=== PATIENT | female | born 1995 | race Caucasian/White ===

== ENCOUNTER 2024-02-06 17:01 | Outpatient (BNV) | payer MEDICARE, MEDICAID, SELFPAY | END 2024-02-14 17:58 | PROVIDERS: Admitting Provider Psychiatry & Neurology Psychiatry; Visit Provider Internal Medicine Cardiovascular Disease | DX: R94.31 Abnormal electrocardiogram [ECG] [EKG] (principal) | CPT/HCPCS: 93010 ==

== ENCOUNTER 2024-02-06 17:01 | Inpatient (IN) | payer MEDICARE, MEDICAID, SELFPAY ==
[2024-02-06 17:48] VITALS: BMI 15.1
[2024-02-06 18:22] VITALS: BP 105/69; PULSE 69; RESP 16; TEMP 36.9; O2SAT 100
--- NOTE | 2024-02-06 18:29 | PC.ADMIT ---
Lucila was admitted to at 1720 from [facility] on a CV for treatment of MDD with self harm via cutting her neck with a razor blade and tweezers. She has an extensive history of self-injurious behavior including cutting her wrist which resulted in permanent nerve damage and 2 surgeries. She has been diagnosed with multiple eating disorders. She was at [facility] for 9 days awaiting a bed, during which time her injuries have largely healed. While there staff attempted to stop her from purging and she began headbanging resulting in a physical and medication restraint. She states that she was hospitalized about a year ago at another hospital and was restrained during that hospitalization as well, also for headbanging. She has no history of aggression towards others and denies HI. Lucila is pleasant and cooperative throughout the admission process. Her thought process is linear and her speech is WNL, quiet, and polite. She asks appropriate questions about the rules of the unit and appears to accept the answers. Lucila currently resides in a custodial in [place] where the staff have been worried about her decompensation. She reports occasional marijuana use as well as daily cigarette smoking. She states that she drank socially in the past but no longer consumes any alcohol. Per custodial staff she has been caught buying cough syrup with unclear intent of getting high vs. self harm. Skin check notable for scabbed superficial wounds to neck and old scars on arms. She refused the flu vaccine. Smoking cessation consult ordered.? Patient is placed on 15 minute checks for safety.
[2024-02-06 20:00] VITALS: BP 127/90; PULSE 72; TEMP 36.4; O2SAT 100
[2024-02-06] MEDS: traZODone HCL 50 MG TABLET PO (22:01)
[2024-02-06] MEDS: Famotidine 20 MG TABLET PO (22:01)
[2024-02-06] MEDS: Docusate Sodium 100 MG CAPSULE PO (22:01)
[2024-02-07] MEDS: traZODone HCL 50 MG TABLET PO ×2 (02:26→21:37)
[2024-02-07 07:49] VITALS: BP 96/64; PULSE 84; RESP 18; TEMP 37; O2SAT 100
[2024-02-07 08:43] LABS: Estimated Average Glucose 94 mg/dL; Hemoglobin A1C 123.6911 umol/L; Hemoglobin A1c % 4.9 % (<6.0); Total Hemoglobin (HGBA1C) 4050.2523 umol/L
[2024-02-07 08:47] LABS: Alanine Aminotransferase 24 U/L (0-31); Albumin Level 4.8 g/dL (3.5-5.0); Alkaline Phosphatase 53 U/L (39-117); Anion Gap 17 (12-20); Aspartate Amino Transferase 69 U/L (5-31); Bilirubin Total 0.6 mg/dL (0.0-1.0); Blood Urea Nitrogen 8 mg/dL (9-16); Calcium 10.4 mg/dL (8.4-10.2); Carbon Dioxide 29 mmol/L (22-29); Chloride 97 mmol/L (96-108); Cholesterol 175 mg/dL (<200); Estimated Glomerular Filt Rate > 60; Glucose Fasting 94 mg/dL (60-99); HDL Cholesterol 44 mg/dL (>40); LDL Cholesterol Calculated 105 mg/dL (<100); Potassium 3.6 mmol/L (3.3-5.1); Sodium 139 mmol/L (135-145); Total Protein 7.8 g/dL (6.5-8.0); Triglycerides 132 mg/dL (<150)
[2024-02-07 09:04] LABS: Thyroid Stimulating Hormone 1.56 uIU/mL (0.32-4.0)
[2024-02-07 09:16] LABS: Folate 15.1 ng/mL (> or = 4.0); Vitamin B12 1203 pg/mL (200-900)
[2024-02-07] MEDS: Famotidine 20 MG TABLET PO ×2 (09:30→21:37)
[2024-02-07] MEDS: Escitalopram Oxalate 20 MG TABLET PO (09:30)
[2024-02-07] MEDS: Docusate Sodium 100 MG CAPSULE PO ×2 (09:31→21:37)
[2024-02-07] MEDS: QUEtiapine Fumarate 50 MG TABLET 150 MG PO (09:31)
[2024-02-07] MEDS: Cholecalciferol (Vitamin D3) 25 MCG TABLET PO (09:31)
[2024-02-07] MEDS: clonazePAM 1 MG TABLET PO (10:36)
--- NOTE | 2024-02-07 11:24 | HO.PSYADMNOT ---
HPI Date of Service: 02/07/24 Chief Complaint: Severe episode of recurrent major depression d/o Sources of Information: patient interviewed, chart reviewed and crisis/core team assessment reviewed HPI Subjective Notes: Conditional Voluntary Narrative: 28 yo female, resident of a longterm with past history of depression, anxiety, trauma and anorexia nervosa who is transferred from [facility] after a 9 day stay in the ED awaiting a bed. Patient initially presented to [facility] with a self inflicted neck injury. She used tweezers and razor blade to cut on her neck. She had a CT that showed subcutaneous emphysema and pneumomediastinum so was transferred as a category trauma to [facility]. She was seen by ENT and scoped and had a encephalogram and both were reassuring and there was no esophageal trauma. She was in the ED. She was restrained on at least one occasion. She was engaged in purging behavior. She was seen by psychiatry for a consltation while in the ED and inpatient hospitalization was recommended. She was finally transferred to [facility] for continued treatment. Patient reports she has been residing at her longterm since May 2023 after a 2 month stay at [facility] eating disorder program. She reports one trigger is her father's [id number]. Otherwise says her depression has been building up and is vague about other precipitants. I just let things bottle up and I cut to escape the pain . She denies current SI. Reports she is regretful about the attempt. Past Psychiatric History: Depression and eating disorder since teenage years. 2 suicide attempts. OD in 2017 and cut wrist causing tendon and median nerve damage 2021. [place] [facility] treatment center. Medical Evaluation Reviewed: Yes [facility] Medical History (Updated 02/07/24 @ 23:11 by Alec Pierce MD) MDD (major depressive disorder) Anorexia nervosa Family History: unknown Social History: Resides in longterm. Single. No children. HS education. Unemployed. Grew up in [place], [place]. Substance History: MJ Trauma History: Reports history of trauma. Details not elicited. Diagnostics Vital Signs (24Hr): Vital Signs - 24 hr 02/06/24 18:22 02/06/24 20:00 02/07/24 07:49 Temperature 98.5 F 97.5 F 98.6 F Pulse Rate 69 72 84 Respiratory Rate 16 18 Blood Pressure 105/69 127/90 H 96/64 Pulse Oximetry 100 100 100 Oxygen Delivery Method Room Air Room Air Room Air BMI result Body Mass Index 15.1 Labs 02/07/24 07:46 Labs: Laboratory Results - last 48 hr 02/07/24 07:46 Sodium 139 Potassium 3.6 Chloride 97 Carbon Dioxide 29 Anion Gap 17 BUN 8 L Creatinine 0.76 Estim Creat Clear Calc 62.0 Estimated GFR > 60 Fasting Glucose 94 Estimat Average Glucose 94 Hemoglobin A1c % 4.9 Calcium 10.4 H Total Bilirubin 0.6 AST 69 H ALT 24 Alkaline Phosphatase 53 Total Protein 7.8 Albumin 4.8 Triglycerides 132 Cholesterol 175 LDL Cholesterol, Calc 105 H HDL Cholesterol 44 Vitamin B12 1203 H Folate 15.1 TSH 1.56 Meds/Allergies Meds Home Medications ?Medication ?Instructions ?Recorded ?Confirmed ?Type cholecalciferol (vitamin D3) 25 25 mcg PO DAILY 02/06/24 02/06/24 History mcg (1,000 unit) capsule docusate sodium 100 mg capsule 100 mg PO BID 02/06/24 02/06/24 History escitalopram oxalate 20 mg tablet 20 mg PO DAILY 02/06/24 02/06/24 History famotidine 20 mg tablet 20 mg PO BID 02/06/24 02/06/24 History melatonin 5 mg tablet 10 mg PO BEDTIME 02/06/24 02/07/24 History ondansetron HCl 4 mg tablet 4 mg PO QID PRN Nausea 02/06/24 02/06/24 History quetiapine 150 mg tablet 150 mg PO BEDTIME 02/06/24 02/07/24 History trazodone 100 mg tablet 200 mg PO BEDTIME PRN Insomnia 02/06/24 02/06/24 History clonazepam 0.5 mg tablet See Rx Instructions .Route 02/07/24 02/07/24 History .COMPLEX PRN Anxiety Allergies Allergies Allergy/AdvReac Type Severity Reaction Status Date / Time pollen extracts Allergy Unknown Unknown Verified 02/06/24 17:54 hydroxyzine Allergy Fainting Verified 02/06/24 17:53 Mental Status Exam Mental Status Exam Narrative: General appearance: Thin. casually appropriately dressed. fair hygiene.?Superficial healing cuts on neck. Eye contact: WNL. Musculoskeletal: Normal muscle strength/tone, Normal gait and station, No abnormal involuntary movements like tremors, EPS or dyskinesia. No psychomotor agitation or retardation. Normal posture.??? Manner/behavior: cooperative and guarded Speech:? Fluent, with normal rate, tone and volume. Language: No receptive or expressive language impairment? Mood: depressed Affect: constricted range, congruent to mood and without lability? Thought process/associations: Linear with no flight of ideas or loose associations.?? Thought content:?No delusions or paranoia.?Helpless. Hallucinations: No auditory, visual or other hallucinations Suicidality/self-destructive behavior: Denies current.? ? Homicidally/violence: none.? Reliability: fair.? ? Judgment: poor.? ? Insight: poor Cognition: Alert and oriented to time, place and person. Attention, concentration and fund of knowledge are normal.? Impulse control and emotional regulation: partial. Intelligence estimate: average.? Assessment & Plan Assessment & Plan (1) Depression, major, severe recurrence: Status: Acute Code(s): F33.2 - Major depressive disorder, recurrent severe without psychotic features (2) Anorexia nervosa, binge eating/purging type: Status: Acute Code(s): F50.029 - Anorexia nervosa, binge eating/purging type, unspecified Plan 28 yo female resident of a longterm admitted from [facility] for self inflicted neck injury and exacerbation of depression and eating disorder behavior. She reports history of trauma and anniversary of her father's . Plan: - Admit to inpatient psychiatry - CV - Collateral information from family and providers. - Milieu treatment and group therapy. - Medications: Contnue. Added Melatonin which patient takes at home and NRT. - Social work evaluation. - Disposition planning. - Tank Terminal Gauger evaluation. - Recheck labs Friday. - Monitor ED behavior. Patient educated on: medication risk/benefits, therapeutic strategies and medical condition Reason for continued inpatient stay Substantial Risk for: harm to self, inability to function and rapid decompensation Statement Statement: I have reviewed the history and physical and performed a pertinent examination on my patient. No changes have occurred unless specified. If the History and Physical was not performed prior to admission, the Hospitalist's service will be consulted for completing the admission physical. Time Spent With Patient Time: Total time managing care of this patient today ____ minutes.
[2024-02-07] MEDS: Nicotine 14 MG PATCH.TD24 TRANSDERMA (12:33)
--- NOTE | 2024-02-07 13:43 | HO.PM.IMCN ---
History of Present Illness Data of Consult Service Date: 02/07/24 Primary Care Provider: Unknown Physician HPI Reason for consult: Admission H&P Pt is a 28-year-old female with a PMH significant for?anorexia nervosa, iron deficiency anemia, generalized anxiety disorder, and MDD who is admitted to [facility] psychiatry unit for worsening depression and SI with self inflicted wounds to the neck. Patient initially presented to [facility] in mid December as a level 2 trauma activation. Patient apparently had used tweezers and a razor blade to cut and poke herself in the anterior neck. Received a CT of soft tissue of neck that showed subcutaneous emphysema to mediastinum. Patient was seen and evaluated by ENT where a flexible fiberoptic laryngoscopy was performed and was essentially normal, though it did show a small tracheal defect that they felt was small and should heal without any intervention. Medical consult for admission H&P. ?Patient seen and evaluated in her room where she reports overall feels well without any acute medical complaints at this time. Occasionally has nausea without vomiting. Is not experiencing any dysphagia, odynophagia, difficulty swallowing, or difficulty handling secretions. No shortness a breath or difficulty breathing. Denies chest pain, pressure, or palpitations. No fever or chills. Of note, pt reports had recent abnormal echocardiogram sometime at the beginning of December where a valve abnormality was identified. Patient unsure of exact findings, but no she should follow-up with her PCP. Vitals reviewed, stable. Labs reviewed, no gross significant abnormalities. Potassium WNL at 3.6. TSH WNL at 1.56. Review of Systems Review of Systems: Patient has no acute medical complaints at this time [facility] Medical History (Updated 02/07/24 @ 14:50 by LEÓN Fisher) MDD (major depressive disorder) Anorexia nervosa Social History Household Members: Caregiver Housing: House Do you presently have visiting nurse or other home services: Yes Patient Tobacco Use Status: Current everyday Tobacco user Tobacco use type: Cigarette Cigarette Packs Per Day: 0.5 Cigarettes Per Day: 10.0 Years Smoked: 8 Smoked in Last 30 Days: Yes e-Cigarette/Vaping Use: Former Use Patient Interested in Nicotine Replacement: Yes Patient Given Instructions on How to Stop Smoking: Yes Date Education Initiated: 02/06/24 Second Hand Smoke Exposure: Yes Use of substances other than those prescribed or required for medical reasons: Yes Substance Use Type: Marijuana Substance Use Frequency: Weekly Last Used Substance: Unknown Currently Displaying Signs/Symptoms of Drug Intoxication Withdrawal: No Any prior treatment program specific to substance use: No Have you been hit, kicked, punched, or otherwise hurt by someone within the past year? If so, by whom?: No Do you feel safe in your current relationship?: No Current Relationship Is there a partner from a previous relationship who is making you feel unsafe now?: No Are you made to feel afraid or neglected: No Advance Directives: No Advance Directives Information Provided: Yes Do you have thoughts of harming others: None Do you have a plan to hurt others: No Plan Recently lost weight without trying: No How much weight loss: Not applicable Eating poorly because of decreased appetite: No Nutrition screen score: 0 Patient : No : No Poor oral hygiene: No Meds Allergies Allergy/AdvReac Type Severity Reaction Status Date / Time pollen extracts Allergy Unknown Unknown Verified 02/06/24 17:54 hydroxyzine Allergy Fainting Verified 02/06/24 17:53 Active Medications: Current Medications Acetaminophen (Acetaminophen 325 Mg Tablet) 650 mg PO Q6H PRN PRN Reason: Headache/Pain Mild Scale (1-3) Al Hydroxide/Mg Hydroxide (Magnesium Hydrox/Alum Hydrox 30 Ml Oral.Susp) 30 ml PO Q6H PRN PRN Reason: Heartburn/Nausea Clonazepam (Clonazepam 0.5 Mg Tablet) 0.5 mg PO BID PRN PRN Reason: Anxiety Clonazepam (Clonazepam 1 Mg Tablet) 1 mg PO DAILY [facility] Last Admin: 02/07/24 10:36 Dose: 1 mg Diphenhydramine HCl (Diphenhydramine Hcl 25 Mg Capsule) 50 mg PO BEDTIME PRN PRN Reason: Insomnia Docusate Sodium (Docusate Sodium 100 Mg Capsule) 100 mg PO BID [facility] Last Admin: 02/07/24 09:31 Dose: 100 mg Escitalopram Oxalate (Escitalopram Oxalate 20 Mg Tablet) 20 mg PO DAILY [facility] Last Admin: 02/07/24 09:30 Dose: 20 mg Famotidine (Famotidine 20 Mg Tablet) 20 mg PO BID [facility] Last Admin: 02/07/24 09:30 Dose: 20 mg Magnesium Hydroxide (Milk Of Magnesia 30 Ml Oral.Susp) 30 ml PO DAILY PRN PRN Reason: Constipation Melatonin (Melatonin 3 Mg Tablet) 10 mg PO BEDTIME [facility] Nicotine (Nicotine 14 Mg Patch.Td24) 14 mg TRANSDERMA DAILY [facility] Last Admin: 02/07/24 12:33 Dose: 14 mg Nicotine Polacrilex (Nicotine Polacrilex 2 Mg Gum) 4 mg BUCCAL Q2H PRN PRN Reason: Nicotine Cravings Nicotine Polacrilex (Nicotine Polacrilex 2 Mg Gum) 2 mg BUCCAL Q2H PRN PRN Reason: Nicotine Cravings Ondansetron HCl (Ondansetron Odt 4 Mg Tab.Rapdis) 4 mg TRANSLINGU QID PRN PRN Reason: Nausea Quetiapine Fumarate (Quetiapine Fumarate 50 Mg Tablet) 150 mg PO BEDTIME [facility] Trazodone HCl (Trazodone Hcl 50 Mg Tablet) 50 mg PO BEDTIME MRX1 PRN PRN Reason: Insomnia Last Admin: 02/07/24 02:26 Dose: 50 mg Vitamin D (Cholecalciferol (Vitamin D3) 25 Mcg Tablet) 25 mcg PO DAILY [facility] Last Admin: 02/07/24 09:31 Dose: 25 mcg Home Medications ?Medication ?Instructions ?Recorded ?Confirmed ?Last Taken ?Type cholecalciferol (vitamin D3) 25 25 mcg PO DAILY 02/06/24 02/06/24 Unknown History mcg (1,000 unit) capsule docusate sodium 100 mg capsule 100 mg PO BID 02/06/24 02/06/24 Unknown History escitalopram oxalate 20 mg tablet 20 mg PO DAILY 02/06/24 02/06/24 Unknown History famotidine 20 mg tablet 20 mg PO BID 02/06/24 02/06/24 Unknown History melatonin 5 mg tablet 10 mg PO BEDTIME 02/06/24 02/07/24 Unknown History ondansetron HCl 4 mg tablet 4 mg PO QID PRN Nausea 02/06/24 02/06/24 Unknown History quetiapine 150 mg tablet 150 mg PO BEDTIME 02/06/24 02/07/24 Unknown History trazodone 100 mg tablet 200 mg PO BEDTIME PRN Insomnia 02/06/24 02/06/24 Unknown History clonazepam 0.5 mg tablet See Rx Instructions .Route 02/07/24 02/07/24 Unknown History .COMPLEX PRN Anxiety Physical Exam Vital Signs and Narrative: Vital Signs: Last Vital Signs Temp 98.6 F 02/07/24 07:49 Pulse 84 02/07/24 07:49 Resp 18 02/07/24 07:49 BP 96/64 02/07/24 07:49 Pulse Ox 100 02/07/24 07:49 O2 Del Method Room Air 02/07/24 07:49 BMI result Body Mass Index 15.1 General: AOx3, very thin, in no acute distress Resp: CTA bilaterally CVS: S1, S2, RRR GI: +BS, NT, no distention Skin: Warm, dry. Well-healing scar tissue on anterior neck. No signs of infection. Neuro: Cranial nerves II-XII grossly intact bilaterally. Motor grossly intact bilaterally Extremities: No edema Results Labs 02/07/24 07:46 Labs: Laboratory Results - last 24 hr 02/07/24 07:46 Anion Gap 17 Estim Creat Clear Calc 62.0 Estimated GFR > 60 Fasting Glucose 94 Estimat Average Glucose 94 Hemoglobin A1c % 4.9 Calcium 10.4 H Total Bilirubin 0.6 AST 69 H ALT 24 Alkaline Phosphatase 53 Total Protein 7.8 Albumin 4.8 Triglycerides 132 Cholesterol 175 LDL Cholesterol, Calc 105 H HDL Cholesterol 44 Vitamin B12 1203 H Folate 15.1 TSH 1.56 Assessment and Plan (1) Medical clearance for psychiatric admission: Status: Acute Plan Pt is a 28-year-old female with a PMH significant for?anorexia nervosa, iron deficiency anemia, generalized anxiety disorder, and MDD who is admitted to [facility] psychiatry unit for worsening depression and SI with self inflicted wounds to the neck. Patient initially presented to [facility] in mid December as a level 2 trauma activation. Patient apparently had used tweezers and a razor blade to cut and poke herself in the anterior neck. Received a CT of soft tissue of neck that showed subcutaneous emphysema to mediastinum. Patient was seen and evaluated by ENT where a flexible fiberoptic laryngoscopy was performed and was essentially normal, though it did show a small tracheal defect that they felt was small and should heal without any intervention. Medical consult for admission H&P. ? Mood disorder Plan as per Psychiatry Anorexia nervosa BMI 15.1, labs without electrolyte abnormalities Plan as per Psychiatry Self-inflicted neck wounds Well-healed, no additional workup or treatment indicated at this time Abnormal echocardiogram Reports received echocardiogram at the beginning of December with unknown valve abnormality Follow up outpatient with PCP Thank you for allowing us to participate in the care of this patient. Signing off at this time. Please re-consult if any acute complaints or issues arise.
[2024-02-07] MEDS: clonazePAM 0.5 MG TABLET PO (16:58)
[2024-02-07 20:00] VITALS: RESP 16
[2024-02-07] MEDS: Melatonin 3 MG TABLET 10 MG PO (21:40)
[2024-02-08] MEDS: clonazePAM 1 MG TABLET PO (10:29)
[2024-02-08] MEDS: Famotidine 20 MG TABLET PO ×2 (10:29→21:03)
[2024-02-08] MEDS: Docusate Sodium 100 MG CAPSULE PO ×2 (10:30→21:03)
[2024-02-08] MEDS: Cholecalciferol (Vitamin D3) 25 MCG TABLET PO (10:30)
[2024-02-08] MEDS: Escitalopram Oxalate 20 MG TABLET PO (10:30)
[2024-02-08] MEDS: clonazePAM 0.5 MG TABLET PO ×2 (10:30→21:09)
[2024-02-08] MEDS: Nicotine 14 MG PATCH.TD24 TRANSDERMA (10:31)
--- NOTE | 2024-02-08 11:06 | HO.PSYCHPN ---
Subjective Subjective Date of Service: 02/08/24 Reason For Visit: Severe episode of recurrent major depression d/o Interim History: Patient seen and discussed. Mostly cooperative however continues with purging behaviors. Eating her meals. Denies SI today and feels safe on the unit. Social with some peers. No SIB. No SI today. Had a distressing dream about father. Reports she was on Trazodone 200 mg HS and requesting same. VSS Review of Systems Review of Systems Patient has no acute medical complaints at this time Mental Status Exam Mental Status Exam Narrative: General appearance: Thin. casually appropriately dressed. fair hygiene.?Superficial healing cuts on neck. Eye contact: WNL. Musculoskeletal: Normal muscle strength/tone, Normal gait and station, No abnormal involuntary movements like tremors, EPS or dyskinesia. No psychomotor agitation or retardation. Normal posture.??? Manner/behavior: cooperative and guarded Speech:? Fluent, with normal rate, tone and volume. Language: No receptive or expressive language impairment? Mood: depressed Affect: constricted range, congruent to mood and without lability? Thought process/associations: Linear with no flight of ideas or loose associations.?? Thought content:?No delusions or paranoia.?Helpless. Hallucinations: No auditory, visual or other hallucinations Suicidality/self-destructive behavior: Denies current.? ? Homicidally/violence: none.? Reliability: fair.? ? Judgment: poor.? ? Insight: poor Cognition: Alert and oriented to time, place and person. Attention, concentration and fund of knowledge are normal.? Impulse control and emotional regulation: partial. Intelligence estimate: average.? Diagnostics Vital Signs (24Hr): Vital Signs - 24 hr 02/07/24 20:00 Respiratory Rate 16 BMI result Body Mass Index 15.1 Labs 02/07/24 07:46 Labs: Laboratory Results - last 48 hr 02/07/24 07:46 Sodium 139 Potassium 3.6 Chloride 97 Carbon Dioxide 29 Anion Gap 17 BUN 8 L Creatinine 0.76 Estim Creat Clear Calc 62.0 Estimated GFR > 60 Fasting Glucose 94 Estimat Average Glucose 94 Hemoglobin A1c % 4.9 Calcium 10.4 H Total Bilirubin 0.6 AST 69 H ALT 24 Alkaline Phosphatase 53 Total Protein 7.8 Albumin 4.8 Triglycerides 132 Cholesterol 175 LDL Cholesterol, Calc 105 H HDL Cholesterol 44 Vitamin B12 1203 H Folate 15.1 TSH 1.56 Medications Medications Current Medications Acetaminophen (Acetaminophen 325 Mg Tablet) 650 mg PO Q6H PRN PRN Reason: Headache/Pain Mild Scale (1-3) Al Hydroxide/Mg Hydroxide (Magnesium Hydrox/Alum Hydrox 30 Ml Oral.Susp) 30 ml PO Q6H PRN PRN Reason: Heartburn/Nausea Clonazepam (Clonazepam 0.5 Mg Tablet) 0.5 mg PO BID PRN PRN Reason: Anxiety Last Admin: 02/08/24 10:30 Dose: 0.5 mg Clonazepam (Clonazepam 1 Mg Tablet) 1 mg PO DAILY [facility] Last Admin: 02/08/24 10:29 Dose: 1 mg Diphenhydramine HCl (Diphenhydramine Hcl 25 Mg Capsule) 50 mg PO BEDTIME PRN PRN Reason: Insomnia Docusate Sodium (Docusate Sodium 100 Mg Capsule) 100 mg PO BID [facility] Last Admin: 02/08/24 10:30 Dose: 100 mg Escitalopram Oxalate (Escitalopram Oxalate 20 Mg Tablet) 20 mg PO DAILY [facility] Last Admin: 02/08/24 10:30 Dose: 20 mg Famotidine (Famotidine 20 Mg Tablet) 20 mg PO BID [facility] Last Admin: 02/08/24 10:29 Dose: 20 mg Magnesium Hydroxide (Milk Of Magnesia 30 Ml Oral.Susp) 30 ml PO DAILY PRN PRN Reason: Constipation Melatonin (Melatonin 3 Mg Tablet) 10 mg PO BEDTIME [facility] Last Admin: 02/07/24 21:40 Dose: 10 mg Nicotine (Nicotine 14 Mg Patch.Td24) 14 mg TRANSDERMA DAILY [facility] Last Admin: 02/08/24 10:31 Dose: 14 mg Nicotine Polacrilex (Nicotine Polacrilex 2 Mg Gum) 4 mg BUCCAL Q2H PRN PRN Reason: Nicotine Cravings Nicotine Polacrilex (Nicotine Polacrilex 2 Mg Gum) 2 mg BUCCAL Q2H PRN PRN Reason: Nicotine Cravings Ondansetron HCl (Ondansetron Odt 4 Mg Tab.Rapdis) 4 mg TRANSLINGU QID PRN PRN Reason: Nausea Quetiapine Fumarate (Quetiapine Fumarate 50 Mg Tablet) 150 mg PO BEDTIME [facility] Trazodone HCl (Trazodone Hcl 50 Mg Tablet) 50 mg PO BEDTIME MRX1 PRN PRN Reason: Insomnia Last Admin: 02/07/24 21:37 Dose: 50 mg Vitamin D (Cholecalciferol (Vitamin D3) 25 Mcg Tablet) 25 mcg PO DAILY [facility] Last Admin: 02/08/24 10:30 Dose: 25 mcg Allergies Allergies Allergy/AdvReac Type Severity Reaction Status Date / Time pollen extracts Allergy Unknown Unknown Verified 02/06/24 17:54 hydroxyzine Allergy Fainting Verified 02/06/24 17:53 Assessment & Plan Assessment & Plan (1) Depression, major, severe recurrence: Status: Acute Code(s): F33.2 - Major depressive disorder, recurrent severe without psychotic features (2) Anorexia nervosa, binge eating/purging type: Status: Acute Code(s): F50.029 - Anorexia nervosa, binge eating/purging type, unspecified Plan 28 yo female resident of a fdc admitted from [facility] for self inflicted neck injury and exacerbation of depression and eating disorder behavior. She reports history of trauma and anniversary of her father's . Plan: - Admit to inpatient psychiatry - CV - Collateral information from family and providers. - Milieu treatment and group therapy. - Medications: Contnue. Added Melatonin which patient takes at home and NRT. - Social work evaluation. - Disposition planning. - Negative Notcher evaluation. - Recheck labs Friday. - Monitor ED behavior. 02/07: Increase Trazodone to 200 mg HS. Metabolic panel in AM 02/08. Reason for continued inpatient stay Substantial Risk for: harm to self, inability to function, rapid decompensation and med/psych decompensation Time Spent With Patient Time: Total time managing care of this patient today ____ minutes.
[2024-02-08] MEDS: Acetaminophen 325 MG TABLET 650 MG PO (16:51)
[2024-02-08] MEDS: Ondansetron ODT 4 MG TAB.RAPDIS TRANSLINGU (16:52)
[2024-02-08 20:00] VITALS: BP 111/80; PULSE 87; RESP 18; TEMP 37.2; O2SAT 99
[2024-02-08] MEDS: Melatonin 3 MG TABLET 10 MG PO (21:01)
[2024-02-08] MEDS: traZODone HCL 100 MG TABLET 200 MG PO (21:02)
[2024-02-08] MEDS: QUEtiapine Fumarate 50 MG TABLET 150 MG PO (21:03)
[2024-02-09 08:00] VITALS: BP 98/60; PULSE 84; TEMP 36.6; O2SAT 98
[2024-02-09] MEDS: Nicotine 14 MG PATCH.TD24 TRANSDERMA (08:43)
[2024-02-09] MEDS: Famotidine 20 MG TABLET PO ×2 (08:44→22:07)
[2024-02-09] MEDS: Cholecalciferol (Vitamin D3) 25 MCG TABLET PO (08:44)
[2024-02-09] MEDS: clonazePAM 1 MG TABLET PO (08:44)
[2024-02-09] MEDS: Escitalopram Oxalate 20 MG TABLET PO (08:44)
[2024-02-09] MEDS: Docusate Sodium 100 MG CAPSULE PO ×2 (08:44→22:07)
[2024-02-09] MEDS: Acetaminophen 325 MG TABLET 650 MG PO (10:52)
[2024-02-09] MEDS: Ondansetron ODT 4 MG TAB.RAPDIS TRANSLINGU (10:52)
[2024-02-09 15:43] VITALS: BP 110/80; PULSE 87; TEMP 36.8; O2SAT 100
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
[2024-02-09 20:00] VITALS: BP 135/80; PULSE 96; TEMP 36.8; O2SAT 99
[2024-02-09] MEDS: clonazePAM 0.5 MG TABLET PO (22:05)
[2024-02-09] MEDS: QUEtiapine Fumarate 50 MG TABLET 150 MG PO (22:06)
[2024-02-09] MEDS: traZODone HCL 100 MG TABLET 200 MG PO (22:06)
[2024-02-09] MEDS: Melatonin 3 MG TABLET 10 MG PO (22:09)
[2024-02-10 08:00] VITALS: BP 105/63; PULSE 103; RESP 17; TEMP 37.3; O2SAT 97
[2024-02-10] MEDS: Nicotine 14 MG PATCH.TD24 TRANSDERMA (09:18)
[2024-02-10] MEDS: clonazePAM 1 MG TABLET PO (09:19)
[2024-02-10] MEDS: Cholecalciferol (Vitamin D3) 25 MCG TABLET PO (09:19)
[2024-02-10] MEDS: Escitalopram Oxalate 20 MG TABLET PO (09:19)
[2024-02-10] MEDS: Famotidine 20 MG TABLET PO ×2 (09:19→22:10)
[2024-02-10] MEDS: Docusate Sodium 100 MG CAPSULE PO ×2 (09:19→22:06)
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
[2024-02-10 20:00] VITALS: BP 108/73; PULSE 82; TEMP 37.1; O2SAT 100
[2024-02-10] MEDS: traZODone HCL 100 MG TABLET 200 MG PO (22:06)
[2024-02-10] MEDS: clonazePAM 0.5 MG TABLET PO (22:06)
[2024-02-10] MEDS: QUEtiapine Fumarate 50 MG TABLET 150 MG PO (22:06)
[2024-02-10] MEDS: Melatonin 3 MG TABLET 10 MG PO (22:40)
[2024-02-11 08:00] VITALS: BP 102/69; PULSE 92; TEMP 36.2; O2SAT 99
[2024-02-11] MEDS: clonazePAM 1 MG TABLET PO (09:10)
[2024-02-11] MEDS: Escitalopram Oxalate 20 MG TABLET PO (09:10)
[2024-02-11] MEDS: Famotidine 20 MG TABLET PO ×2 (09:10→21:19)
[2024-02-11] MEDS: Cholecalciferol (Vitamin D3) 25 MCG TABLET PO (09:10)
[2024-02-11] MEDS: Docusate Sodium 100 MG CAPSULE PO ×2 (09:10→21:19)
[2024-02-11] MEDS: Nicotine 14 MG PATCH.TD24 TRANSDERMA (09:10)
[2024-02-11] MEDS: Ondansetron ODT 4 MG TAB.RAPDIS TRANSLINGU (13:47)
[2024-02-11] MEDS: Acetaminophen 325 MG TABLET 650 MG PO (13:49)
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
[2024-02-11 20:00] VITALS: BP 122/75; PULSE 87; TEMP 36.8; O2SAT 100
[2024-02-11 21:19] VITALS: BP 122/75
[2024-02-11] MEDS: Prazosin HCL 1 MG CAPSULE PO (21:19)
[2024-02-11] MEDS: QUEtiapine Fumarate 50 MG TABLET 150 MG PO (21:19)
[2024-02-11] MEDS: traZODone HCL 100 MG TABLET 200 MG PO (21:19)
[2024-02-11] MEDS: Melatonin 3 MG TABLET 9 MG PO (21:20)
[2024-02-12] MEDS: traZODone HCL 100 MG TABLET 200 MG PO ×2 (00:36→21:12)
[2024-02-12 08:00] VITALS: BP 107/62; PULSE 76; RESP 16; TEMP 37; O2SAT 98
[2024-02-12] MEDS: Cholecalciferol (Vitamin D3) 25 MCG TABLET PO (11:15)
[2024-02-12] MEDS: Nicotine 14 MG PATCH.TD24 TRANSDERMA (11:15)
[2024-02-12] MEDS: Escitalopram Oxalate 20 MG TABLET PO (11:15)
[2024-02-12] MEDS: clonazePAM 1 MG TABLET PO (11:15)
[2024-02-12] MEDS: Docusate Sodium 100 MG CAPSULE PO ×2 (11:15→21:11)
[2024-02-12] MEDS: Famotidine 20 MG TABLET PO ×2 (11:15→21:12)
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
[2024-02-12 20:00] VITALS: BP 109/74; PULSE 96; O2SAT 95
[2024-02-12 21:11] VITALS: BP 109/74
[2024-02-12] MEDS: Melatonin 3 MG TABLET 9 MG PO (21:11)
[2024-02-12] MEDS: Prazosin HCL 1 MG CAPSULE PO (21:11)
[2024-02-12] MEDS: QUEtiapine Fumarate 50 MG TABLET 150 MG PO (21:12)
[2024-02-12] MEDS: Acetaminophen 325 MG TABLET 650 MG PO (21:21)
[2024-02-12] MEDS: clonazePAM 0.5 MG TABLET PO (21:22)
[2024-02-13 08:00] VITALS: BP 105/59; PULSE 77; RESP 16; TEMP 36.9; O2SAT 96
--- NOTE | 2024-02-13 09:49 | P.PNPSI_ITS ---
Subjective Subjective Date of Service: 02/13/24 Reason For Visit: Severe episode of recurrent major depression d/o Subjective Notes: Conditional Voluntary Healthcare Proxy: No Guardianship: No Medical Problems Affecting Mental Status: No Interim History: I am feeling triggered today. Requests Melatonin increase to 12 mg. Not wanting to process current feelings or sx. Making needs known, however staying in her room mostly, room-mate is supportive of pt. Declines further discussion. Medication Compliance: Yes Side effects from medications: No Attending Groups: No Review of Systems Acute medical concerns: No Medical Review of Systems: unchanged Review of Systems Review of Systems Denies Mental Status Exam Mental Status Exam Patient Appearance: Appropriate Patient Orientation: Person, Place, Time and Situation Level of Consciousness: Alert Patient Behavior: Passive, Avoidant and Good Eye Contact Mood Description: Depressed, Anxious and Apprehensive Affect Description: Anxious, Flat and Apprehensive Patient Cognition Impaired: No Ability to Follow Directions: Good Speech Pattern: Spontaneous Speech Memory Description: Episodic Impaired Hallucinations: None Delusions: Paranoid Ideation Perceptual Disturbances: Depersonalization and Derealization Thought Process: Rumination Thought Content: positive for Perseveration and positive for Suicidal Ideation (denies) Depressive Symptoms: Hopelessness, Unhappiness, Low Self Esteem, Loss of Energy and Difficulty Concentrating Judgement: Fair Diagnostics Vital Signs (24Hr): Vital Signs - 24 hr 02/12/24 20:00 02/12/24 21:11 Pulse Rate 96 Blood Pressure 109/74 109/74 Pulse Oximetry 95 Oxygen Delivery Method Room Air BMI result Body Mass Index 15.1 Labs 02/07/24 07:46 Medications Medications Current Medications Acetaminophen (Acetaminophen 325 Mg Tablet) 650 mg PO Q6H PRN PRN Reason: Headache/Pain Mild Scale (1-3) Last Admin: 02/12/24 21:21 Dose: 650 mg Al Hydroxide/Mg Hydroxide (Magnesium Hydrox/Alum Hydrox 30 Ml Oral.Susp) 30 ml PO Q6H PRN PRN Reason: Heartburn/Nausea Clonazepam (Clonazepam 0.5 Mg Tablet) 0.5 mg PO BID PRN PRN Reason: Anxiety Last Admin: 02/12/24 21:22 Dose: 0.5 mg Clonazepam (Clonazepam 1 Mg Tablet) 1 mg PO DAILY [facility] Last Admin: 02/12/24 11:15 Dose: 1 mg Diphenhydramine HCl (Diphenhydramine Hcl 25 Mg Capsule) 50 mg PO BEDTIME PRN PRN Reason: Insomnia Docusate Sodium (Docusate Sodium 100 Mg Capsule) 100 mg PO BID [facility] Last Admin: 02/12/24 21:11 Dose: 100 mg Escitalopram Oxalate (Escitalopram Oxalate 20 Mg Tablet) 20 mg PO DAILY [facility] Last Admin: 02/12/24 11:15 Dose: 20 mg Famotidine (Famotidine 20 Mg Tablet) 20 mg PO BID [facility] Last Admin: 02/12/24 21:12 Dose: 20 mg Magnesium Hydroxide (Milk Of Magnesia 30 Ml Oral.Susp) 30 ml PO DAILY PRN PRN Reason: Constipation Melatonin (Melatonin 3 Mg Tablet) 9 mg PO BEDTIME [facility] Last Admin: 02/12/24 21:11 Dose: 9 mg Nicotine (Nicotine 14 Mg Patch.Td24) 14 mg TRANSDERMA DAILY [facility] Last Admin: 02/12/24 11:15 Dose: 14 mg Nicotine Polacrilex (Nicotine Polacrilex 2 Mg Gum) 4 mg BUCCAL Q2H PRN PRN Reason: Nicotine Cravings Nicotine Polacrilex (Nicotine Polacrilex 2 Mg Gum) 2 mg BUCCAL Q2H PRN PRN Reason: Nicotine Cravings Ondansetron HCl (Ondansetron Odt 4 Mg Tab.Rapdis) 4 mg TRANSLINGU QID PRN PRN Reason: Nausea Last Admin: 02/11/24 13:47 Dose: 4 mg Prazosin HCl (Prazosin Hcl 1 Mg Capsule) 1 mg PO BEDTIME [facility]; Protocol Last Admin: 02/12/24 21:11 Dose: 1 mg Quetiapine Fumarate (Quetiapine Fumarate 50 Mg Tablet) 150 mg PO BEDTIME [facility] Last Admin: 02/12/24 21:12 Dose: 150 mg Trazodone HCl (Trazodone Hcl 100 Mg Tablet) 200 mg PO BEDTIME MRX1 [facility] Last Admin: 02/12/24 22:30 Dose: Not Given Vitamin D (Cholecalciferol (Vitamin D3) 25 Mcg Tablet) 25 mcg PO DAILY [facility] Last Admin: 02/12/24 11:15 Dose: 25 mcg Allergies Allergies Allergy/AdvReac Type Severity Reaction Status Date / Time pollen extracts Allergy Unknown Unknown Verified 02/06/24 17:54 hydroxyzine Allergy Fainting Verified 02/06/24 17:53 Assessment & Plan Assessment & Plan (1) Depression, major, severe recurrence: Status: Acute Code(s): F33.2 - Major depressive disorder, recurrent severe without psychotic features (2) Anorexia nervosa, binge eating/purging type: Status: Acute Code(s): F50.029 - Anorexia nervosa, binge eating/purging type, unspecified Plan 28 yo female resident of a half-way admitted from [facility] for self inflicted neck injury and exacerbation of depression and eating disorder behavior. She reports history of trauma and anniversary of her father's . Plan: - Admit to inpatient psychiatry - CV - Collateral information from family and providers. - Milieu treatment and group therapy. - Medications: Contnue. Added Melatonin which patient takes at home and NRT. - Social work evaluation. - Disposition planning. - Is Support Analyst evaluation. - Recheck labs Friday. - Monitor ED behavior. 02/07: Increase Trazodone to 200 mg HS. Metabolic panel in AM 02/08. 02/08: Continue tx. Collateral contact with program Encourage milieu participation. 02/10: Prazosin 1 mg HS for mgt of nightmares. 02/12: Increase Melatonin to 12 mg HS Reason for continued inpatient stay Substantial Risk for: rapid decompensation and med/psych decompensation Time Spent With Patient Time: Total time managing care of this patient today ____ minutes.
[2024-02-13] MEDS: Nicotine 14 MG PATCH.TD24 TRANSDERMA (10:07)
[2024-02-13] MEDS: clonazePAM 1 MG TABLET PO (10:08)
[2024-02-13] MEDS: Escitalopram Oxalate 20 MG TABLET PO (10:09)
[2024-02-13] MEDS: Cholecalciferol (Vitamin D3) 25 MCG TABLET PO (10:09)
[2024-02-13] MEDS: Famotidine 20 MG TABLET PO ×2 (10:09→21:29)
[2024-02-13] MEDS: Docusate Sodium 100 MG CAPSULE PO ×2 (10:09→21:29)
[2024-02-13] MEDS: clonazePAM 0.5 MG TABLET PO (16:11)
[2024-02-13 20:00] VITALS: BP 123/72; PULSE 74; RESP 16; TEMP 36.2; O2SAT 100
[2024-02-13 21:28] VITALS: BP 107/78
[2024-02-13] MEDS: Prazosin HCL 1 MG CAPSULE PO (21:28)
[2024-02-13] MEDS: QUEtiapine Fumarate 50 MG TABLET 150 MG PO (21:29)
[2024-02-13] MEDS: traZODone HCL 100 MG TABLET 200 MG PO (21:29)
[2024-02-13] MEDS: Melatonin 3 MG TABLET 12 MG PO (21:30)
[2024-02-13] MEDS: Acetaminophen 325 MG TABLET 650 MG PO (21:35)
[2024-02-14 08:00] VITALS: BP 101/58; PULSE 78; RESP 14; TEMP 36.9; O2SAT 97
[2024-02-14] MEDS: Escitalopram Oxalate 20 MG TABLET PO (08:57)
[2024-02-14] MEDS: Docusate Sodium 100 MG CAPSULE PO ×2 (08:58→23:02)
[2024-02-14] MEDS: Cholecalciferol (Vitamin D3) 25 MCG TABLET PO (08:58)
[2024-02-14] MEDS: Nicotine 14 MG PATCH.TD24 TRANSDERMA (08:58)
[2024-02-14] MEDS: Famotidine 20 MG TABLET PO ×2 (08:58→23:07)
[2024-02-14] MEDS: clonazePAM 1 MG TABLET PO (08:58)
--- NOTE | 2024-02-14 09:11 | HO.PSYCHPN ---
Subjective Subjective Date of Service: 02/14/24 Reason For Visit: Severe episode of recurrent major depression d/o Subjective Notes: Conditional Voluntary Healthcare Proxy: No Guardianship: No Medical Problems Affecting Mental Status: No Interim History: Patient was seen and discussed in rounds today. Records and plans were reviewed. She has been visible. Continues to have some paranoia. Endorses depression and anxiety. Eating and sleeping adequately. No complaints or side effects. No recent med changes. No SI. Review of Systems Review of Systems Yes all other systems are reviewed and are negative Mental Status Exam Mental Status Exam Narrative: In today's visit she is alert, oriented and pleasant. Normal speech. Moderate eye contact. Appropriate affect. No acute signs of psychosis. Cognitively is grossly intact. No SI. Judgment is intact. Some paranoid ideations reported. Diagnostics Vital Signs (24Hr): Vital Signs - 24 hr 02/13/24 20:00 02/13/24 21:28 02/14/24 08:00 Temperature 97.2 F 98.4 F Pulse Rate 74 78 Respiratory Rate 16 14 Blood Pressure 123/72 107/78 101/58 L Pulse Oximetry 100 97 Oxygen Delivery Method Room Air Room Air BMI result Body Mass Index 15.1 Labs 02/07/24 07:46 Medications Medications Current Medications Acetaminophen (Acetaminophen 325 Mg Tablet) 650 mg PO Q6H PRN PRN Reason: Headache/Pain Mild Scale (1-3) Last Admin: 02/13/24 21:35 Dose: 650 mg Al Hydroxide/Mg Hydroxide (Magnesium Hydrox/Alum Hydrox 30 Ml Oral.Susp) 30 ml PO Q6H PRN PRN Reason: Heartburn/Nausea Clonazepam (Clonazepam 0.5 Mg Tablet) 0.5 mg PO BID PRN PRN Reason: Anxiety Last Admin: 02/13/24 16:11 Dose: 0.5 mg Clonazepam (Clonazepam 1 Mg Tablet) 1 mg PO DAILY [facility] Last Admin: 02/14/24 08:58 Dose: 1 mg Diphenhydramine HCl (Diphenhydramine Hcl 25 Mg Capsule) 50 mg PO BEDTIME PRN PRN Reason: Insomnia Docusate Sodium (Docusate Sodium 100 Mg Capsule) 100 mg PO BID [facility] Last Admin: 02/14/24 08:58 Dose: 100 mg Escitalopram Oxalate (Escitalopram Oxalate 20 Mg Tablet) 20 mg PO DAILY [facility] Last Admin: 02/14/24 08:57 Dose: 20 mg Famotidine (Famotidine 20 Mg Tablet) 20 mg PO BID [facility] Last Admin: 02/14/24 08:58 Dose: 20 mg Magnesium Hydroxide (Milk Of Magnesia 30 Ml Oral.Susp) 30 ml PO DAILY PRN PRN Reason: Constipation Melatonin (Melatonin 3 Mg Tablet) 12 mg PO BEDTIME [facility] Last Admin: 02/13/24 21:30 Dose: 12 mg Nicotine (Nicotine 14 Mg Patch.Td24) 14 mg TRANSDERMA DAILY [facility] Last Admin: 02/14/24 08:58 Dose: 14 mg Nicotine Polacrilex (Nicotine Polacrilex 2 Mg Gum) 4 mg BUCCAL Q2H PRN PRN Reason: Nicotine Cravings Nicotine Polacrilex (Nicotine Polacrilex 2 Mg Gum) 2 mg BUCCAL Q2H PRN PRN Reason: Nicotine Cravings Ondansetron HCl (Ondansetron Odt 4 Mg Tab.Rapdis) 4 mg TRANSLINGU QID PRN PRN Reason: Nausea Last Admin: 02/11/24 13:47 Dose: 4 mg Prazosin HCl (Prazosin Hcl 1 Mg Capsule) 1 mg PO BEDTIME [facility]; Protocol Last Admin: 02/13/24 21:28 Dose: 1 mg Quetiapine Fumarate (Quetiapine Fumarate 50 Mg Tablet) 150 mg PO BEDTIME [facility] Last Admin: 02/13/24 21:29 Dose: 150 mg Trazodone HCl (Trazodone Hcl 100 Mg Tablet) 200 mg PO BEDTIME MRX1 [facility] Last Admin: 02/14/24 06:01 Dose: Not Given Vitamin D (Cholecalciferol (Vitamin D3) 25 Mcg Tablet) 25 mcg PO DAILY [facility] Last Admin: 02/14/24 08:58 Dose: 25 mcg Allergies Allergies Allergy/AdvReac Type Severity Reaction Status Date / Time pollen extracts Allergy Unknown Unknown Verified 02/06/24 17:54 hydroxyzine Allergy Fainting Verified 02/06/24 17:53 Assessment & Plan Assessment & Plan (1) Depression, major, severe recurrence: Status: Acute Code(s): F33.2 - Major depressive disorder, recurrent severe without psychotic features (2) Anorexia nervosa, binge eating/purging type: Status: Acute Code(s): F50.029 - Anorexia nervosa, binge eating/purging type, unspecified Plan 28 yo female resident of a fci admitted from [facility] for self inflicted neck injury and exacerbation of depression and eating disorder behavior. She reports history of trauma and anniversary of her father's . Plan: - Admit to inpatient psychiatry - CV - Collateral information from family and providers. - Milieu treatment and group therapy. - Medications: Contnue. Added Melatonin which patient takes at home and NRT. - Social work evaluation. - Disposition planning. - Claims Supervisor evaluation. - Recheck labs Friday. - Monitor ED behavior. 02/07: Increase Trazodone to 200 mg HS. Metabolic panel in AM 02/08. 02/08: Continue tx. Collateral contact with program Encourage milieu participation. 02/10: Prazosin 1 mg HS for mgt of nightmares. 02/12: Increase Melatonin to 12 mg HS 02/13: Continue current regimen and plans for further stabilization. Reason for continued inpatient stay Substantial Risk for: med/psych decompensation Time Spent With Patient Time: Total time managing care of this patient today ____ minutes.
[2024-02-14] MEDS: Acetaminophen 325 MG TABLET 650 MG PO (13:33)
[2024-02-14] MEDS: Ibuprofen 400 MG TABLET PO (17:46)
[2024-02-14 17:53] LABS: Anion Gap 16 (12-20); Carbon Dioxide 30 mmol/L (22-29); Chloride 94 mmol/L (96-108); Potassium 2.7 mmol/L (3.3-5.1); Sodium 137 mmol/L (135-145)
--- NOTE | 2024-02-14 17:58 | ECG_ITS ---
Test Reason : hypokalemia Blood Pressure : / mmHG Vent. Rate : 091 BPM Atrial Rate : 091 BPM P-R Int : 158 ms QRS Dur : 082 ms QT Int : 372 ms P-R-T Axes : 027 033 208 degrees QTc Int : 457 ms Normal sinus rhythm ST & T wave abnormality, consider inferolateral ischemia Abnormal ECG No previous ECGs available Referred By: Jose Pederson Electronically Signed By:Asif Roque
[2024-02-14] MEDS: Potassium Chloride Packet 20 MEQ PACKET 60 MEQ PO (18:39)
--- NOTE | 2024-02-14 19:03 | PC.NURSE ---
Pt asked for large amounts of snacks throughout day, and overheard purging in bathroom several times today. Covering provider made aware and pt received blood work to check electrolytes. Critical Potassium 2.7 received. Hospitalist and covering provider made aware. ECG obtained and forwarded to hospitalist. Pt received Potassium 60meg oral replacement per orders. Hospitalist made aware that pt reported feeling abdominal cramping today, as well as a newly reported itchy , tingling sensation throughout her arms and legs. Pt stated both symptoms began two days ago. Pt stated this week she also felt fatigue and difficulty standing for long periods of time. Pt stated she experienced these symptoms in the past with low Potassium, and stated to her knowledge her lowest Potassium level was 2.1.
[2024-02-14 20:00] VITALS: BP 108/56; PULSE 84; RESP 16; TEMP 37.1; O2SAT 99
[2024-02-14] MEDS: Potassium Chloride ER 20 MEQ TAB.ER.PRT 40 MEQ PO (20:27)
[2024-02-14] MEDS: QUEtiapine Fumarate 50 MG TABLET 150 MG PO (22:59)
[2024-02-14 23:03] VITALS: BP 99/70
[2024-02-14] MEDS: Prazosin HCL 1 MG CAPSULE PO (23:03)
[2024-02-14] MEDS: Melatonin 3 MG TABLET 12 MG PO (23:04)
[2024-02-14] MEDS: traZODone HCL 100 MG TABLET 200 MG PO (23:07)
--- NOTE | 2024-02-15 00:15 | PM.EVENT ---
Event Note Date of Service: 02/15/24 Event Note: Patient is a 28-year-old female with a PMH significant for anorexia nervosa who admitted to [facility] who was actively purging herself on the unit. Labs were drawn and came back showing hypokalemia of 2.7. Will treat patient with potassium 60 mEq and an additional 40 mEq extended release tablet. Will recheck labs tonight and then again in the morning, and supplement as necessary. Time Spent With Patient Time: Total time managing care of this patient today ____ minutes.
[2024-02-15 00:21] LABS: Anion Gap 13 (12-20); Blood Urea Nitrogen 5 mg/dL (9-16); Calcium 9.3 mg/dL (8.4-10.2); Carbon Dioxide 30 mmol/L (22-29); Chloride 99 mmol/L (96-108); Creatinine Clr Calc Pharmacy 67.2; Estimated Glomerular Filt Rate > 60; Glucose Random 95 mg/dL (60-115); Potassium 2.9 mmol/L (3.3-5.1); Sodium 139 mmol/L (135-145)
--- NOTE | 2024-02-15 00:24 | PC.NURSE ---
Lab called with critical potassium level 2.9. [place] text was also forwarded to Akshat Garcia. Repeat dose of K+ ordered.
[2024-02-15] MEDS: Potassium Chloride Packet 20 MEQ PACKET 40 MEQ PO ×2 (00:42→18:32)
--- NOTE | 2024-02-15 00:46 | PC.NURSE ---
Potassium, 40 meq po given at 0042. Patient encouraged to try and relax to allow medication to be absorbed.
--- NOTE | 2024-02-15 07:00 | PC.NURSE ---
Dr. Ro aware of patient's labs and K+ medications given during the night.
[2024-02-15 07:53] VITALS: BP 96/52; PULSE 77; RESP 14; TEMP 36.8; O2SAT 97
[2024-02-15 09:01] LABS: Anion Gap 11 (12-20); Blood Urea Nitrogen 7 mg/dL (9-16); Carbon Dioxide 29 mmol/L (22-29); Chloride 105 mmol/L (96-108); Creatinine Clr Calc Pharmacy 74.7; Estimated Glomerular Filt Rate > 60; Glucose Random 109 mg/dL (60-115); Sodium 141 mmol/L (135-145)
[2024-02-15] MEDS: clonazePAM 1 MG TABLET PO (09:26)
[2024-02-15] MEDS: Cholecalciferol (Vitamin D3) 25 MCG TABLET PO (09:26)
[2024-02-15] MEDS: Nicotine 14 MG PATCH.TD24 TRANSDERMA (09:26)
[2024-02-15] MEDS: Docusate Sodium 100 MG CAPSULE PO ×2 (09:27→21:39)
[2024-02-15] MEDS: Escitalopram Oxalate 20 MG TABLET PO (09:27)
[2024-02-15] MEDS: Famotidine 20 MG TABLET PO ×2 (09:27→21:39)
--- NOTE | 2024-02-15 09:31 | P.PNPSI_ITS ---
Subjective Subjective Date of Service: 02/15/24 Reason For Visit: Severe episode of recurrent major depression d/o Subjective Notes: Conditional Voluntary Healthcare Proxy: No Guardianship: No Medical Problems Affecting Mental Status: No Interim History: Patient was seen and discussed in rounds today. Records and plans were reviewed. She continues to binge and purge and last evening her potassium was 2.7. Hospitalist was consulted and was given potassium and this morning her level is at 4.0. We are going to reach out to the hospitalist again. No potassium was given this morning until we hear back. I did have a discussion with her about this and she has gone through this many times. No SI. Sleeping adequately. Review of Systems Review of Systems Bingeing and purging Yes all other systems are reviewed and are negative Mental Status Exam Mental Status Exam Narrative: In today's visit she is alert, oriented and pleasant. Normal speech. Moderate eye contact. Appropriate affect. No acute signs of psychosis. Cognitively is grossly intact. No SI. Judgment is intact. Able to move all limbs. No abnormalities of gait. Some paranoid ideations reported. Diagnostics Vital Signs (24Hr): Vital Signs - 24 hr 02/14/24 20:00 02/14/24 23:03 02/15/24 07:53 Temperature 98.7 F 98.3 F Pulse Rate 84 77 Respiratory Rate 16 14 Blood Pressure 108/56 L 99/70 96/52 L Pulse Oximetry 99 97 Oxygen Delivery Method Room Air Room Air BMI result Body Mass Index 15.1 Labs 02/15/24 08:07 Labs: Laboratory Results - last 48 hr 02/14/24 02/14/24 02/14/24 17:22 23:47 23:53 Sodium 137 139 Potassium 2.7 L* D 2.9 L* Chloride 94 L 99 Carbon Dioxide 30 H 30 H Anion Gap 16 13 BUN 5 L Creatinine 0.70 Estim Creat Clear Calc 67.2 Estimated GFR > 60 Random Glucose 95 Calcium 9.3 D Hold Yellow Top See Note 02/15/24 08:07 Sodium 141 Potassium 4.0 D Chloride 105 Carbon Dioxide 29 Anion Gap 11 L BUN 7 L Creatinine 0.63 Estim Creat Clear Calc 74.7 Estimated GFR > 60 Random Glucose 109 Calcium 9.0 Hold Yellow Top Medications Medications Current Medications Acetaminophen (Acetaminophen 325 Mg Tablet) 650 mg PO Q6H PRN PRN Reason: Headache/Pain Mild Scale (1-3) Last Admin: 02/14/24 13:33 Dose: 650 mg Al Hydroxide/Mg Hydroxide (Magnesium Hydrox/Alum Hydrox 30 Ml Oral.Susp) 30 ml PO Q6H PRN PRN Reason: Heartburn/Nausea Clonazepam (Clonazepam 0.5 Mg Tablet) 0.5 mg PO BID PRN PRN Reason: Anxiety Last Admin: 02/13/24 16:11 Dose: 0.5 mg Clonazepam (Clonazepam 1 Mg Tablet) 1 mg PO DAILY [facility] Last Admin: 02/15/24 09:26 Dose: 1 mg Diphenhydramine HCl (Diphenhydramine Hcl 25 Mg Capsule) 50 mg PO BEDTIME PRN PRN Reason: Insomnia Docusate Sodium (Docusate Sodium 100 Mg Capsule) 100 mg PO BID [facility] Last Admin: 02/15/24 09:27 Dose: 100 mg Escitalopram Oxalate (Escitalopram Oxalate 20 Mg Tablet) 20 mg PO DAILY [facility] Last Admin: 02/15/24 09:27 Dose: 20 mg Famotidine (Famotidine 20 Mg Tablet) 20 mg PO BID [facility] Last Admin: 02/15/24 09:27 Dose: 20 mg Ibuprofen (Ibuprofen 400 Mg Tablet) 400 mg PO Q6H PRN PRN Reason: Pain, Moderate(Pain Scale 4-6) Last Admin: 02/14/24 17:46 Dose: 400 mg Magnesium Hydroxide (Milk Of Magnesia 30 Ml Oral.Susp) 30 ml PO DAILY PRN PRN Reason: Constipation Melatonin (Melatonin 3 Mg Tablet) 12 mg PO BEDTIME [facility] Last Admin: 02/14/24 23:04 Dose: 12 mg Nicotine (Nicotine 14 Mg Patch.Td24) 14 mg TRANSDERMA DAILY [facility] Last Admin: 02/15/24 09:26 Dose: 14 mg Nicotine Polacrilex (Nicotine Polacrilex 2 Mg Gum) 4 mg BUCCAL Q2H PRN PRN Reason: Nicotine Cravings Nicotine Polacrilex (Nicotine Polacrilex 2 Mg Gum) 2 mg BUCCAL Q2H PRN PRN Reason: Nicotine Cravings Ondansetron HCl (Ondansetron Odt 4 Mg Tab.Rapdis) 4 mg TRANSLINGU QID PRN PRN Reason: Nausea Last Admin: 02/11/24 13:47 Dose: 4 mg Potassium Chloride (Potassium Chloride Packet 20 Meq Packet) 40 meq PO DAILY [facility] Last Admin: 02/15/24 09:29 Dose: Not Given Prazosin HCl (Prazosin Hcl 1 Mg Capsule) 1 mg PO BEDTIME [facility]; Protocol Last Admin: 02/14/24 23:03 Dose: 1 mg Quetiapine Fumarate (Quetiapine Fumarate 50 Mg Tablet) 150 mg PO BEDTIME [facility] Last Admin: 02/14/24 22:59 Dose: 150 mg Trazodone HCl (Trazodone Hcl 100 Mg Tablet) 200 mg PO BEDTIME MRX1 [facility] Last Admin: 02/15/24 06:49 Dose: Not Given Vitamin D (Cholecalciferol (Vitamin D3) 25 Mcg Tablet) 25 mcg PO DAILY [facility] Last Admin: 02/15/24 09:26 Dose: 25 mcg Allergies Allergies Allergy/AdvReac Type Severity Reaction Status Date / Time pollen extracts Allergy Unknown Unknown Verified 02/06/24 17:54 hydroxyzine Allergy Fainting Verified 02/06/24 17:53 Assessment & Plan Assessment & Plan (1) Depression, major, severe recurrence: Status: Acute Code(s): F33.2 - Major depressive disorder, recurrent severe without psychotic features (2) Anorexia nervosa, binge eating/purging type: Status: Acute Code(s): F50.029 - Anorexia nervosa, binge eating/purging type, unspecified Plan 28 yo female resident of a halfway admitted from [facility] for self inflicted neck injury and exacerbation of depression and eating disorder behavior. She reports history of trauma and anniversary of her father's . Plan: - Admit to inpatient psychiatry - CV - Collateral information from family and providers. - Milieu treatment and group therapy. - Medications: Contnue. Added Melatonin which patient takes at home and NRT. - Social work evaluation. - Disposition planning. - Broiler Manager evaluation. - Recheck labs Friday. - Monitor ED behavior. 02/07: Increase Trazodone to 200 mg HS. Metabolic panel in AM 02/08. 02/08: Continue tx. Collateral contact with program Encourage milieu participation. 02/10: Prazosin 1 mg HS for mgt of nightmares. 02/12: Increase Melatonin to 12 mg HS 02/13: Continue current regimen and plans for further stabilization. 02/14: Continue current regimen and plans for stabilization and medication management. Low potassium was treated Patient educated on: medication risk/benefits Reason for continued inpatient stay Substantial Risk for: med/psych decompensation Time Spent With Patient Time: Total time managing care of this patient today ____ minutes.
[2024-02-15] MEDS: Ondansetron ODT 4 MG TAB.RAPDIS TRANSLINGU (12:26)
[2024-02-15] MEDS: Acetaminophen 325 MG TABLET 650 MG PO (12:26)
[2024-02-15] MEDS: Ibuprofen 400 MG TABLET PO (16:18)
[2024-02-15 19:47] VITALS: BP 103/67; PULSE 90; RESP 15; TEMP 37.1; O2SAT 100
[2024-02-15 20:39] LABS: Anion Gap 12 (12-20); Blood Urea Nitrogen 6 mg/dL (9-16); Calcium 8.9 mg/dL (8.4-10.2); Carbon Dioxide 31 mmol/L (22-29); Chloride 101 mmol/L (96-108); Creatinine Clr Calc Pharmacy 66.3; Estimated Glomerular Filt Rate > 60; Glucose Random 94 mg/dL (60-115); Potassium 3.9 mmol/L (3.3-5.1); Sodium 140 mmol/L (135-145)
[2024-02-15] MEDS: QUEtiapine Fumarate 50 MG TABLET 150 MG PO (21:38)
[2024-02-15] MEDS: Melatonin 3 MG TABLET 12 MG PO (21:38)
[2024-02-15] MEDS: traZODone HCL 100 MG TABLET 200 MG PO (21:39)
[2024-02-15] MEDS: Prazosin HCL 1 MG CAPSULE PO (21:39)
[2024-02-15] MEDS: clonazePAM 0.5 MG TABLET PO (21:44)
[2024-02-16 08:00] VITALS: BP 98/58; PULSE 87; TEMP 36.9; O2SAT 98
[2024-02-16] MEDS: Docusate Sodium 100 MG CAPSULE PO ×2 (10:52→21:39)
[2024-02-16] MEDS: Escitalopram Oxalate 20 MG TABLET PO (10:52)
[2024-02-16] MEDS: Cholecalciferol (Vitamin D3) 25 MCG TABLET PO (10:52)
[2024-02-16] MEDS: Famotidine 20 MG TABLET PO ×2 (10:52→21:39)
[2024-02-16] MEDS: clonazePAM 1 MG TABLET PO (10:53)
[2024-02-16] MEDS: Nicotine 14 MG PATCH.TD24 TRANSDERMA (10:53)
--- NOTE | 2024-02-16 16:11 | HO.PSYCHPN ---
Subjective Subjective Date of Service: 02/16/24 Reason For Visit: Severe episode of recurrent major depression d/o Subjective Notes: Conditional Voluntary Healthcare Proxy: No Guardianship: No Medical Problems Affecting Mental Status: No Interim History: Pt had a zoom meeting with family and team. She reports feeling some improvement. She was able to identify stressors leading to admit-anniversary of fathers loss, states what she saw is distressing however she was not wanting to be a burden to others and discuss this. Also incident at the clubhouse was difficult. Discussed feelings of guilt, burdening others, feeling people are angry, anxiety and states she will just need someone to talk with. Team discussed how to communicate these needs and came up with a code word pt can use. Pt discussed searching for a new therapist. Team reports [facility] is also looking for a new therapist for her. Discussed other supports-groups, day program, social club. Team reviewed new programs pt may benefit from. Pt states she is feeling comfortable with [facility] and has close friends there. She would like to return. Family discussed not being able to bring food in every day. Mom will visit 2-3 times per week, but not daily and identified future goals to work on. Pt identified coping skills that help such as walking, having coffee, jounaling, making sure she is engaging in programs and check ins to see how she is doing. Plan will be to return to the program on 02/17. Medication Compliance: Yes Side effects from medications: No Attending Groups: Intermittent Review of Systems Binge Purge behaviors are present. Medical Review of Systems: unchanged Review of Systems Review of Systems Denies Mental Status Exam Mental Status Exam Patient Appearance: Appropriate Patient Orientation: Person, Place, Time and Situation Level of Consciousness: Alert Patient Behavior: Passive, Avoidant and Good Eye Contact Mood Description: Anxious and Apprehensive Affect Description: Anxious, Flat and Apprehensive Patient Cognition Impaired: No Ability to Follow Directions: Good Speech Pattern: Spontaneous Speech Memory Description: Episodic Impaired Hallucinations: None Perceptual Disturbances: Depersonalization and Derealization Thought Process: Distracted Thought Content: positive for Perseveration and positive for Suicidal Ideation (denies) Depressive Symptoms: Low Self Esteem Judgement: Fair Diagnostics Vital Signs (24Hr): Vital Signs - 24 hr 02/15/24 19:47 02/16/24 08:00 Temperature 98.7 F 98.5 F Pulse Rate 90 87 Respiratory Rate 15 Blood Pressure 103/67 98/58 L Pulse Oximetry 100 98 Oxygen Delivery Method Room Air BMI result Body Mass Index 15.1 Labs 02/15/24 20:18 Labs: Laboratory Results - last 48 hr 02/14/24 02/14/24 02/14/24 17:22 23:47 23:53 Sodium 137 139 Potassium 2.7 L* D 2.9 L* Chloride 94 L 99 Carbon Dioxide 30 H 30 H Anion Gap 16 13 BUN 5 L Creatinine 0.70 Estim Creat Clear Calc 67.2 Estimated GFR > 60 Random Glucose 95 Calcium 9.3 D Hold Yellow Top See Note 02/15/24 02/15/24 08:07 20:18 Sodium 141 140 Potassium 4.0 D 3.9 Chloride 105 101 Carbon Dioxide 29 31 H Anion Gap 11 L 12 BUN 7 L 6 L Creatinine 0.63 0.71 Estim Creat Clear Calc 74.7 66.3 Estimated GFR > 60 > 60 Random Glucose 109 94 Calcium 9.0 8.9 Hold Yellow Top Medications Medications Current Medications Acetaminophen (Acetaminophen 325 Mg Tablet) 650 mg PO Q6H PRN PRN Reason: Headache/Pain Mild Scale (1-3) Last Admin: 02/15/24 12:26 Dose: 650 mg Al Hydroxide/Mg Hydroxide (Magnesium Hydrox/Alum Hydrox 30 Ml Oral.Susp) 30 ml PO Q6H PRN PRN Reason: Heartburn/Nausea Clonazepam (Clonazepam 1 Mg Tablet) 1 mg PO DAILY [facility] Last Admin: 02/16/24 10:53 Dose: 1 mg Clonazepam (Clonazepam 0.5 Mg Tablet) 0.5 mg PO BID PRN PRN Reason: Anxiety Diphenhydramine HCl (Diphenhydramine Hcl 25 Mg Capsule) 50 mg PO BEDTIME PRN PRN Reason: Insomnia Docusate Sodium (Docusate Sodium 100 Mg Capsule) 100 mg PO BID [facility] Last Admin: 02/16/24 10:52 Dose: 100 mg Escitalopram Oxalate (Escitalopram Oxalate 20 Mg Tablet) 20 mg PO DAILY [facility] Last Admin: 02/16/24 10:52 Dose: 20 mg Famotidine (Famotidine 20 Mg Tablet) 20 mg PO BID [facility] Last Admin: 02/16/24 10:52 Dose: 20 mg Ibuprofen (Ibuprofen 400 Mg Tablet) 400 mg PO Q6H PRN PRN Reason: Pain, Moderate(Pain Scale 4-6) Last Admin: 02/15/24 16:18 Dose: 400 mg Magnesium Hydroxide (Milk Of Magnesia 30 Ml Oral.Susp) 30 ml PO DAILY PRN PRN Reason: Constipation Melatonin (Melatonin 3 Mg Tablet) 12 mg PO BEDTIME [facility] Last Admin: 02/15/24 21:38 Dose: 12 mg Nicotine (Nicotine 14 Mg Patch.Td24) 14 mg TRANSDERMA DAILY [facility] Last Admin: 02/16/24 10:53 Dose: 14 mg Nicotine Polacrilex (Nicotine Polacrilex 2 Mg Gum) 4 mg BUCCAL Q2H PRN PRN Reason: Nicotine Cravings Nicotine Polacrilex (Nicotine Polacrilex 2 Mg Gum) 2 mg BUCCAL Q2H PRN PRN Reason: Nicotine Cravings Ondansetron HCl (Ondansetron Odt 4 Mg Tab.Rapdis) 4 mg TRANSLINGU QID PRN PRN Reason: Nausea Last Admin: 02/15/24 12:26 Dose: 4 mg Prazosin HCl (Prazosin Hcl 1 Mg Capsule) 1 mg PO BEDTIME [facility]; Protocol Last Admin: 02/15/24 21:39 Dose: 1 mg Quetiapine Fumarate (Quetiapine Fumarate 50 Mg Tablet) 150 mg PO BEDTIME [facility] Last Admin: 02/15/24 21:38 Dose: 150 mg Trazodone HCl (Trazodone Hcl 100 Mg Tablet) 200 mg PO BEDTIME MRX1 [facility] Last Admin: 02/15/24 23:07 Dose: Not Given Vitamin D (Cholecalciferol (Vitamin D3) 25 Mcg Tablet) 25 mcg PO DAILY [facility] Last Admin: 02/16/24 10:52 Dose: 25 mcg Allergies Allergies Allergy/AdvReac Type Severity Reaction Status Date / Time pollen extracts Allergy Unknown Unknown Verified 02/06/24 17:54 hydroxyzine Allergy Fainting Verified 02/06/24 17:53 Assessment & Plan Assessment & Plan (1) Depression, major, severe recurrence: Status: Acute Code(s): F33.2 - Major depressive disorder, recurrent severe without psychotic features (2) Anorexia nervosa, binge eating/purging type: Status: Acute Code(s): F50.029 - Anorexia nervosa, binge eating/purging type, unspecified Plan 28 yo female resident of a care home admitted from [facility] for self inflicted neck injury and exacerbation of depression and eating disorder behavior. She reports history of trauma and anniversary of her father's . Plan: - Admit to inpatient psychiatry - CV - Collateral information from family and providers. - Milieu treatment and group therapy. - Medications: Contnue. Added Melatonin which patient takes at home and NRT. - Social work evaluation. - Disposition planning. - Psychotherapist Social Worker evaluation. - Recheck labs Friday. - Monitor ED behavior. 02/07: Increase Trazodone to 200 mg HS. Metabolic panel in AM 02/08. 02/08: Continue tx. Collateral contact with program Encourage milieu participation. 02/10: Prazosin 1 mg HS for mgt of nightmares. 02/12: Increase Melatonin to 12 mg HS 02/13: Continue current regimen and plans for further stabilization. 02/14: Continue current regimen and plans for stabilization and medication management. Low potassium was treated 02/15: Pt participated in family/team meeting and expressed herself well. Discharge 02/18/24. Reason for continued inpatient stay Substantial Risk for: rapid decompensation and med/psych decompensation Time Spent With Patient Time: Total time managing care of this patient today ____ minutes.
[2024-02-16 20:00] VITALS: BP 109/72; PULSE 76; TEMP 37.1; O2SAT 100
[2024-02-16] MEDS: QUEtiapine Fumarate 50 MG TABLET 150 MG PO (21:39)
[2024-02-16 21:40] VITALS: BP 111/76
[2024-02-16] MEDS: Prazosin HCL 1 MG CAPSULE PO (21:40)
[2024-02-16] MEDS: Melatonin 3 MG TABLET 12 MG PO (21:40)
[2024-02-16] MEDS: traZODone HCL 100 MG TABLET 200 MG PO (21:40)
[2024-02-16] MEDS: clonazePAM 0.5 MG TABLET PO (21:45)
[2024-02-17 08:00] VITALS: BP 98/63; PULSE 73; RESP 16; TEMP 36.4; O2SAT 97
--- NOTE | 2024-02-17 08:49 | HO.PSYCHPN ---
Subjective Subjective Date of Service: 02/17/24 Reason For Visit: Severe episode of recurrent major depression d/o Subjective Notes: Conditional Voluntary Healthcare Proxy: No Guardianship: Yes Medical Problems Affecting Mental Status: No Interim History: Pt denies SI/HI/AH/VH Preparing for discharge Review of discharge plans with pt She agreed we will draw labs in the a.m. to monitor electrolytes. Team is working on scheduling a nutrition consult for pt upon discharge. Medication Compliance: Yes Side effects from medications: No Attending Groups: Intermittent Review of Systems Binge-purge cycling Medical Review of Systems: unchanged Review of Systems Review of Systems Denies Mental Status Exam Mental Status Exam Narrative: Pt consistently reports feeling triggered in current milieu. Return to her program she finds to be a relief and reports she believes anxiety will decrease. Patient Appearance: Appropriate Patient Orientation: Person, Place, Time and Situation Level of Consciousness: Alert Patient Behavior: Passive, Avoidant and Good Eye Contact Mood Description: Anxious and Apprehensive Affect Description: Anxious, Flat and Apprehensive Patient Cognition Impaired: No Ability to Follow Directions: Good Speech Pattern: Spontaneous Speech Memory Description: Episodic Impaired Hallucinations: None Perceptual Disturbances: Depersonalization and Derealization Thought Process: Distracted Thought Content: positive for Perseveration and positive for Suicidal Ideation (denies) Depressive Symptoms: Low Self Esteem Judgement: Fair Diagnostics Vital Signs (24Hr): Vital Signs - 24 hr 02/16/24 20:00 02/16/24 21:40 Temperature 98.8 F Pulse Rate 76 Blood Pressure 109/72 111/76 Pulse Oximetry 100 Oxygen Delivery Method Room Air BMI result Body Mass Index 15.1 Labs 02/15/24 20:18 Labs: Laboratory Results - last 48 hr 02/15/24 02/15/24 08:07 20:18 Sodium 141 140 Potassium 4.0 D 3.9 Chloride 105 101 Carbon Dioxide 29 31 H Anion Gap 11 L 12 BUN 7 L 6 L Creatinine 0.63 0.71 Estim Creat Clear Calc 74.7 66.3 Estimated GFR > 60 > 60 Random Glucose 109 94 Calcium 9.0 8.9 Medications Medications Current Medications Acetaminophen (Acetaminophen 325 Mg Tablet) 650 mg PO Q6H PRN PRN Reason: Headache/Pain Mild Scale (1-3) Last Admin: 02/15/24 12:26 Dose: 650 mg Al Hydroxide/Mg Hydroxide (Magnesium Hydrox/Alum Hydrox 30 Ml Oral.Susp) 30 ml PO Q6H PRN PRN Reason: Heartburn/Nausea Clonazepam (Clonazepam 1 Mg Tablet) 1 mg PO DAILY [facility] Last Admin: 02/16/24 10:53 Dose: 1 mg Clonazepam (Clonazepam 0.5 Mg Tablet) 0.5 mg PO BID PRN PRN Reason: Anxiety Last Admin: 02/16/24 21:45 Dose: 0.5 mg Diphenhydramine HCl (Diphenhydramine Hcl 25 Mg Capsule) 50 mg PO BEDTIME PRN PRN Reason: Insomnia Docusate Sodium (Docusate Sodium 100 Mg Capsule) 100 mg PO BID [facility] Last Admin: 02/16/24 21:39 Dose: 100 mg Escitalopram Oxalate (Escitalopram Oxalate 20 Mg Tablet) 20 mg PO DAILY [facility] Last Admin: 02/16/24 10:52 Dose: 20 mg Famotidine (Famotidine 20 Mg Tablet) 20 mg PO BID [facility] Last Admin: 02/16/24 21:39 Dose: 20 mg Ibuprofen (Ibuprofen 400 Mg Tablet) 400 mg PO Q6H PRN PRN Reason: Pain, Moderate(Pain Scale 4-6) Last Admin: 02/15/24 16:18 Dose: 400 mg Magnesium Hydroxide (Milk Of Magnesia 30 Ml Oral.Susp) 30 ml PO DAILY PRN PRN Reason: Constipation Melatonin (Melatonin 3 Mg Tablet) 12 mg PO BEDTIME [facility] Last Admin: 02/16/24 21:40 Dose: 12 mg Nicotine (Nicotine 14 Mg Patch.Td24) 14 mg TRANSDERMA DAILY [facility] Last Admin: 02/16/24 10:53 Dose: 14 mg Nicotine Polacrilex (Nicotine Polacrilex 2 Mg Gum) 4 mg BUCCAL Q2H PRN PRN Reason: Nicotine Cravings Nicotine Polacrilex (Nicotine Polacrilex 2 Mg Gum) 2 mg BUCCAL Q2H PRN PRN Reason: Nicotine Cravings Ondansetron HCl (Ondansetron Odt 4 Mg Tab.Rapdis) 4 mg TRANSLINGU QID PRN PRN Reason: Nausea Last Admin: 02/15/24 12:26 Dose: 4 mg Prazosin HCl (Prazosin Hcl 1 Mg Capsule) 1 mg PO BEDTIME [facility]; Protocol Last Admin: 02/16/24 21:40 Dose: 1 mg Quetiapine Fumarate (Quetiapine Fumarate 50 Mg Tablet) 150 mg PO BEDTIME [facility] Last Admin: 02/16/24 21:39 Dose: 150 mg Trazodone HCl (Trazodone Hcl 100 Mg Tablet) 200 mg PO BEDTIME MRX1 [facility] Last Admin: 02/16/24 23:00 Dose: Not Given Vitamin D (Cholecalciferol (Vitamin D3) 25 Mcg Tablet) 25 mcg PO DAILY [facility] Last Admin: 02/16/24 10:52 Dose: 25 mcg Allergies Allergies Allergy/AdvReac Type Severity Reaction Status Date / Time pollen extracts Allergy Unknown Unknown Verified 02/06/24 17:54 hydroxyzine Allergy Fainting Verified 02/06/24 17:53 Assessment & Plan Assessment & Plan (1) Depression, major, severe recurrence: Status: Acute Code(s): F33.2 - Major depressive disorder, recurrent severe without psychotic features (2) Anorexia nervosa, binge eating/purging type: Status: Acute Code(s): F50.029 - Anorexia nervosa, binge eating/purging type, unspecified Plan 28 yo female [facility] [place] [facility] admitted from [facility] for self inflicted neck injury and exacerbation of depression and eating disorder behavior. She reports history of trauma and anniversary of her father's . Plan: - Admit to inpatient psychiatry - CV - Collateral information from family and providers. - Milieu treatment and group therapy. - Medications: Contnue. Added Melatonin which patient takes at home and NRT. - Social work evaluation. - Disposition planning. - Food Service Utility Worker evaluation. - Recheck labs Friday. - Monitor ED behavior. 02/07: Increase Trazodone to 200 mg HS. Metabolic panel in AM 02/08. 02/08: Continue tx. Collateral contact with program Encourage milieu participation. 02/10: Prazosin 1 mg HS for mgt of nightmares. 02/12: Increase Melatonin to 12 mg HS 02/13: Continue current regimen and plans for further stabilization. 02/14: Continue current regimen and plans for stabilization and medication management. Low potassium was treated 02/16: CBCD, Comp Met Panel 02/17 Discharge Coordination with residential team via email for medications and changes was completed. Reason for continued inpatient stay Substantial Risk for: stable for discharge Time Spent With Patient Time: Total time managing care of this patient today ____ minutes.
[2024-02-17] MEDS: Nicotine 14 MG PATCH.TD24 TRANSDERMA (09:48)
[2024-02-17] MEDS: Famotidine 20 MG TABLET PO ×2 (09:49→21:07)
[2024-02-17] MEDS: Escitalopram Oxalate 20 MG TABLET PO (09:49)
[2024-02-17] MEDS: Cholecalciferol (Vitamin D3) 25 MCG TABLET PO (09:49)
[2024-02-17] MEDS: clonazePAM 1 MG TABLET PO (09:49)
[2024-02-17] MEDS: Docusate Sodium 100 MG CAPSULE PO ×2 (09:49→21:07)
[2024-02-17] MEDS: Ibuprofen 400 MG TABLET PO (12:15)
[2024-02-17] MEDS: clonazePAM 0.5 MG TABLET PO ×2 (12:15→21:13)
[2024-02-17 20:00] VITALS: BP 102/74; PULSE 84; TEMP 36.3; O2SAT 100
[2024-02-17] MEDS: traZODone HCL 100 MG TABLET 200 MG PO (21:07)
[2024-02-17] MEDS: QUEtiapine Fumarate 50 MG TABLET 150 MG PO (21:08)
[2024-02-17] MEDS: Melatonin 3 MG TABLET 12 MG PO (21:08)
[2024-02-17 21:09] VITALS: BP 103/76
[2024-02-17] MEDS: Prazosin HCL 1 MG CAPSULE PO (21:09)
[2024-02-18 08:00] VITALS: BP 93/57; PULSE 101; RESP 16; TEMP 36.8; O2SAT 97
[2024-02-18 09:05] LABS: MANUAL DIFF FLAG NO
[2024-02-18 09:07] LABS: Basophils Percent Auto 0.7 % (0-2); Eosinophils Absolute Auto 0.1 X10*3/uL (0.0-0.4); Eosinophils Percent Auto 1.8 % (0-4); Hematocrit 40.8 % (37.0-47.0); Hemoglobin 14.3 g/dl (12.0-16.0); Imm Gran Abs Auto 0.02 X10*3/uL (0.00-0.03); Imm Gran Pct Auto 0.4 % (0.0-0.4); Lymphocytes Percent Auto 36.8 % (20-40); Mean Corpuscular Hemoglobin 30.7 pg (27.0-33.0); Mean Corpuscular Volume 87.6 fL (80.0-98.0); Mean Platelet Volume 8.4 fL (9.4-12.3); Monocytes Absolute Auto 0.5 X10*3/uL (0.1-1.2); Monocytes Percent Auto 9.9 % (2-11); Neutrophils Absolute Auto 2.7 x10*3/uL (2.0-8.3); Neutrophils Percent Auto 50.4 % (45-73); Platelet Count 294 X10*3/uL (160-400); Red Blood Count 4.66 X10*6/uL (4.20-5.50); Red Cell Distribution Width 11.6 % (11.0-16.0); White Blood Count 5.4 X10*3/uL (4.8-10.8)
[2024-02-18 09:25] LABS: Alanine Aminotransferase 25 U/L (0-31); Albumin Level 4.4 g/dL (3.5-5.0); Alkaline Phosphatase 49 U/L (39-117); Anion Gap 14 (12-20); Aspartate Amino Transferase 28 U/L (5-31); Bilirubin Total 0.2 mg/dL (0.0-1.0); Blood Urea Nitrogen 9 mg/dL (9-16); Calcium 9.2 mg/dL (8.4-10.2); Carbon Dioxide 33 mmol/L (22-29); Chloride 96 mmol/L (96-108); Creatinine Clr Calc Pharmacy 66.3; Estimated Glomerular Filt Rate > 60; Glucose Random 92 mg/dL (60-115); Potassium 3.3 mmol/L (3.3-5.1); Sodium 140 mmol/L (135-145); Total Protein 7.1 g/dL (6.5-8.0)
--- NOTE | 2024-02-18 09:44 | P.DS_ITS ---
DS: Providers Provider Date of Service: 02/18/24 Date of admission: 02/06/24 17:01 Date of discharge: 02/18/24 Primary care physician: Unknown Physician Admitting clinician: Alec Pierce Attending physician on admission: Alec Pierce Consults: 02/06/24 18:51 Consult to Hospitalist Routine Comment: Consulting Provider: Hospitalist Reason For Exam: medical H&P 02/14/24 17:54 Consult to Hospitalist Routine Comment: Consulting Provider: Hospitalist Reason For Exam: anorexia K 2.7 Attending physician on discharge: Carmine Echeverria Discharging clinician: Tori Stern DS: Diagnosis Discharge Diagnosis (1) Depression, major, severe recurrence: Status: Acute (2) Anorexia nervosa, binge eating/purging type: Status: Acute DS: Medications Discharge Medications Home Medications: Home Medications ?Medication ?Instructions ?Recorded ?Confirmed cholecalciferol (vitamin D3) 25 25 mcg PO DAILY 02/06/24 02/06/24 mcg (1,000 unit) capsule docusate sodium 100 mg capsule 100 mg PO BID 02/06/24 02/06/24 escitalopram oxalate 20 mg tablet 20 mg PO DAILY 02/06/24 02/06/24 famotidine 20 mg tablet 20 mg PO BID 02/06/24 02/06/24 ondansetron HCl 4 mg tablet 4 mg PO QID PRN Nausea 02/06/24 02/06/24 quetiapine 150 mg tablet 150 mg PO BEDTIME 02/06/24 02/07/24 trazodone 100 mg tablet 200 mg PO BEDTIME PRN Insomnia 02/06/24 02/06/24 Previous Rx's ?Medication ?Instructions ?Recorded acetaminophen 325 mg tablet 650 mg (2 x 325 mg) PO Q6H PRN 02/17/24 Headache/Pain Mild Scale (1-3) #0 tabs clonazepam 0.5 mg tablet 0.5 mg PO BID PRN Anxiety #0 tabs 02/17/24 clonazepam 1 mg tablet 1 mg PO DAILY #0 tabs 02/17/24 diphenhydramine HCl 25 mg capsule 50 mg (2 x 25 mg) PO BEDTIME PRN 02/17/24 (Banophen) Insomnia #30 caps melatonin 3 mg tablet 12 mg (4 x 3 mg) PO BEDTIME #120 02/17/24 tabs prazosin 1 mg capsule 1 mg PO BEDTIME #30 caps 02/17/24 Mental Status Exam Mental Status Exam Narrative: Pt consistently reports feeling triggered in current milieu. Return to her program she finds to be a relief and reports she believes anxiety will decrease. Patient Appearance: Appropriate Patient Orientation: Person, Place, Time and Situation Level of Consciousness: Alert Patient Behavior: Passive, Avoidant and Good Eye Contact Mood Description: Anxious and Apprehensive Affect Description: Anxious, Flat and Apprehensive Patient Cognition Impaired: No Ability to Follow Directions: Good Speech Pattern: Spontaneous Speech Memory Description: Episodic Impaired Hallucinations: None Perceptual Disturbances: Depersonalization and Derealization Thought Process: Distracted Thought Content: positive for Perseveration and positive for Suicidal Ideation (denies) Depressive Symptoms: Low Self Esteem Judgement: Fair Data Data Completed and Pending Completed studies during hospitalization [Text1]: 02/14/24 02/14/24 02/14/24 17:22 23:47 23:53 WBC RBC Hgb Hct MCV MCH MCHC RDW Plt Count MPV Immature Gran % (Auto) Neut % (Auto) Lymph % (Auto) [place] % (Auto) Eos % (Auto) Baso % (Auto) Lymph # (Auto) [place] # (Auto) Eos # (Auto) Baso # (Auto) Abs Immat Gran (auto) Absolute Neuts (auto) Absolute Nucleated RBC Nucleated RBC % (auto) Sodium 137 139 Potassium 2.7 L* D 2.9 L* Chloride 94 L 99 Carbon Dioxide 30 H 30 H Anion Gap 16 13 BUN 5 L Creatinine 0.70 Estim Creat Clear Calc 67.2 Estimated GFR > 60 Random Glucose 95 Calcium 9.3 D Total Bilirubin AST ALT Alkaline Phosphatase Total Protein Albumin Hold Yellow Top See Note 02/15/24 02/15/24 02/18/24 08:07 20:18 08:33 WBC 5.4 RBC 4.66 Hgb 14.3 Hct 40.8 MCV 87.6 MCH 30.7 MCHC 35.0 RDW 11.6 Plt Count 294 MPV 8.4 L Immature Gran % (Auto) 0.4 Neut % (Auto) 50.4 Lymph % (Auto) 36.8 [place] % (Auto) 9.9 Eos % (Auto) 1.8 Baso % (Auto) 0.7 Lymph # (Auto) 2.0 [place] # (Auto) 0.5 Eos # (Auto) 0.1 Baso # (Auto) 0.0 Abs Immat Gran (auto) 0.02 Absolute Neuts (auto) 2.7 Absolute Nucleated RBC 0.000 Nucleated RBC % (auto) 0.0 Sodium 141 140 140 Potassium 4.0 D 3.9 3.3 Chloride 105 101 96 Carbon Dioxide 29 31 H 33 H Anion Gap 11 L 12 14 BUN 7 L 6 L 9 Creatinine 0.63 0.71 0.71 Estim Creat Clear Calc 74.7 66.3 66.3 Estimated GFR > 60 > 60 > 60 Random Glucose 109 94 92 Calcium 9.0 8.9 9.2 Total Bilirubin 0.2 AST 28 ALT 25 Alkaline Phosphatase 49 Total Protein 7.1 Albumin 4.4 Hold Yellow Top DS: Summary Hospital Course Hospital Course: Admission to adult psychiatry for exacerbation of recurrent major depression, PTSD. Hx of anorexia nervosa with bingeing and purging. Pt lives in a long term since May 2023 and has just completed 60 days of in pt care with Barbara for anorexia. She self inflicted a cut to her neck with tweezers and a razor prior to admission and was medically cleared with [facility]. Precipitants include this being the two year anniversary of her father's , new admit to long term, mother being pt's guardian, and psychosocial changes as a result she is just accommodating to. She reported a hx of SIBS-cutting with tendon involvement in 2021 and hx of OD. Pt was encouraged to utilize the milieu which she did minimally. Medications were evaluated and some adjustments were made with pt's approval. Pt had ongoing discussions with [facility] team and her residential team and family regarding changes that could be made to help support her more in community. In patient milieu was triggering for pt. She will return to her out patient team and consultants upon discharge. Status at Discharge Functional status at discharge: independent ambulation Overall status at discharge: patient is progressing back to baseline Time Spent with Patient Time attestation: Total time managing care of this patient today ____ minutes. Time spent: Less than 30 minutes Discharge Plan Discharge Anticipated Discharge Date/Time: 02/18/24 12:00 Patient Disposition: Xfer Other Discharge Diagnosis: Recurrent major depression, severe Anorexia nervosa, binge eating/purging type Referrals: Dr Rj Butler [Other] - 02/23/24 11:20 am (FridayFeb 22 11:20am) Psychiatry with [facility] [Other] - 03/02/24 11:20 am [facility] Nutrition Department [Other] - 05/11/24 10:30 am (Please see details regarding directions to the office. Also you are on the cancelation list and they will call you if they have a cancellation. ) Therapy with [facility] [Other] - 1 Week (The therapist called and told me she would reach out to pt for next appointment. ) Discharge Medications: New acetaminophen 325 mg Tablet 650 mg PO Q6H PRN (Reason: Headache/Pain Mild Scale (1-3)) Qty: 0 0RF prazosin 1 mg Capsule 1 mg PO BEDTIME Qty: 30 0RF Protocol: Hold for SBP< HOLD for SBP < : 90 clonazepam 0.5 mg Tablet 0.5 mg PO BID PRN (Reason: Anxiety) Qty: 0 0RF clonazepam 1 mg Tablet 1 mg PO DAILY Qty: 0 0RF melatonin 3 mg Tablet 12 mg PO BEDTIME Qty: 120 0RF diphenhydramine HCl [Banophen] 25 mg Capsule 50 mg PO BEDTIME PRN (Reason: Insomnia) Qty: 30 0RF Continued ondansetron HCl 4 mg tablet 4 mg PO QID PRN (Reason: Nausea) famotidine 20 mg tablet 20 mg PO BID trazodone 100 mg tablet 200 mg PO BEDTIME PRN (Reason: Insomnia) docusate sodium 100 mg capsule 100 mg PO BID cholecalciferol (vitamin D3) 25 mcg (1,000 unit) capsule 25 mcg PO DAILY escitalopram oxalate 20 mg tablet 20 mg PO DAILY quetiapine 150 mg tablet 150 mg PO BEDTIME Rx Instructions: take 150mg by mouth nightly Discontinued melatonin 5 mg tablet 10 mg PO BEDTIME clonazepam 0.5 mg tablet See Rx Instructions .ROUTE .COMPLEX PRN (Reason: Anxiety) Rx Instructions: Take 1 tablet by mouth 2 times a day, Can take an extra 0.5 mg as needed for severe anxiety Discharge Orders: Discharge Order (Routine); Ordered 02/18/24 Ordered By: Tori Stern Diet: Advance to usual diet Activity on Discharge: As tolerated Stand Alone Forms: Patient Portal Discharge page, Community Support Print Language: Indonesian Care Plan Goals: Mood and Behavioral Stabilization Health Concerns: Mood and Behavioral Stabilization Plan of Treatment: Attend scheduled appointments Take medications as directed [facility] Nutrition Dept. ---May 11, 2024 10:30am (You are on a cancel list-they will call if they can schedule you earlier) --[facility]. Go into the main hospital, take Elevator C to Level A. You will turn to the wall with the blue bottom half and then take a left at the Nutrition Dept. --For questions, call [phone]. Assessment: No SI/HI/AH/VH No overt sx of psychosis or bhavesh Discharge Date/Time: 02/18/24 12:35
[2024-02-18] MEDS: clonazePAM 1 MG TABLET PO (09:49)
[2024-02-18] MEDS: Docusate Sodium 100 MG CAPSULE PO (09:49)
[2024-02-18] MEDS: Escitalopram Oxalate 20 MG TABLET PO (09:49)
[2024-02-18] MEDS: Famotidine 20 MG TABLET PO (09:49)
[2024-02-18] MEDS: Cholecalciferol (Vitamin D3) 25 MCG TABLET PO (09:49)
== END 2024-02-18 12:35 | disposition other institution (70) | DRG 885 ==
PROVIDERS: Psychiatry & Neurology Psychiatry; Social Worker; Student in an Organized Health Care Education/Training Program; Admitting Provider Psychiatry & Neurology Psychiatry; Visit Provider Clinical Nurse Specialist Psychiatric/Mental Health, Adult
DX: F33.2 Major depressive disorder, recurrent severe without psychotic features (principal); R45.851 Suicidal ideations; F50.029 Anorexia nervosa, binge eating/purging type, unspecified; Z68.1 Body mass index [BMI] 19.9 or less, adult; R93.1 Abnormal findings on diagnostic imaging of heart and coronary circulation; Z63.4 Disappearance and death of family member; F17.210 Nicotine dependence, cigarettes, uncomplicated; Z91.52 Personal history of nonsuicidal self-harm; Z71.6 Tobacco abuse counseling; Z79.899 Other long term (current) drug therapy
CPT/HCPCS: 36415; 80048; 80051; 80053; 80061; 82607; 82746; 83036; 84443; 85025; 93005

== ENCOUNTER → 2024-02-06 17:01 | Outpatient (BNV) | payer MEDICARE, MEDICAID, SELFPAY | PROVIDERS: Admitting Provider Psychiatry & Neurology Psychiatry; Visit Provider Psychiatry & Neurology Psychiatry | DX: F33.2 Major depressive disorder, recurrent severe without psychotic features (principal); F50.029 Anorexia nervosa, binge eating/purging type, unspecified | CPT/HCPCS: 90792; 99231; 99232; 99238 ==

== ENCOUNTER → 2024-02-06 17:01 | Outpatient (BNV) | payer MEDICARE, MEDICAID, SELFPAY | PROVIDERS: Admitting Provider Psychiatry & Neurology Psychiatry; Visit Provider Student in an Organized Health Care Education/Training Program | DX: Z02.2 Encounter for examination for admission to residential institution (principal) | CPT/HCPCS: 99429; 99499 ==